=== PATIENT | male | born 1995 | race Caucasian/White ===

== ENCOUNTER → 2021-08-30 20:24 | Outpatient (CLI) | payer OTHER, SELFPAY ==
--- NOTE | 2021-09-01 11:49 | PC.NURSE ---
notified pt of positive COVID results at this time
== END ==
PROVIDERS: Visit Provider Nurse Practitioner Family
DX: U07.1 COVID-19 (principal); J02.9 Acute pharyngitis, unspecified
CPT/HCPCS: C9803; U0003; U0005